=== PATIENT | female | born 1955 | race Caucasian/White ===

== ENCOUNTER 2020-06-16 07:34 | Emergency (ER) | payer MEDICARE, MEDICAID ==
[~2020-06-16] VITALS: Ht 160 cm; Wt 54.5 kg
[~2020-06-16 07:34] MED LIST: AMOX250C4 PO; GLYB5 PO; LOSA50TA37 PO; METF-960 PO; NITR0.4T52 SL; PARO-38 PO
[2020-06-16] MEDS ORDERED: ACETAMINOPHEN 325 MG TABLET PO ONE (08:15)
[2020-06-16 09:30] VITALS: BP 143/89
[2020-06-16 15:43] LABS: GLUCOSE,POINT OF CARE 329 MG/DL (70-110)
== END 2020-06-16 10:28 | disposition home or self-care (01) ==
LOC: EMS 07:35
DX: U07.1 COVID-19 (principal); E11.65 Type 2 diabetes mellitus with hyperglycemia; I10 Essential (primary) hypertension; Z79.84 Long term (current) use of oral hypoglycemic drugs; Z79.899 Other long term (current) drug therapy
CPT/HCPCS: 71045; 82962; 99284; U0003; 82948